=== PATIENT | female | born 1950 | race Two or more races ===

== ENCOUNTER 2018-07-22 12:37 | Outpatient (CLI) | payer OTHER | END 2018-07-22 12:44 | disposition home or self-care (01) | LOC: SONOGRAMA 12:37 | DX: N60.11 Diffuse cystic mastopathy of right breast (principal); N60.12 Diffuse cystic mastopathy of left breast; N63.21 Unspecified lump in the left breast, upper outer quadrant ==

== ENCOUNTER 2018-09-16 06:59 | Day surgery (SDC) | payer OTHER ==
[~2018-09-16 06:59] MED LIST: CALTRATE 600+D1 EAC1 PO; OSTERA TABLET1 EACH PO; SYNTHROID75 MCG PO
== END 2018-09-16 18:15 | disposition home or self-care (01) ==
LOC: CIR.AMB 06:59
DX: D24.2 Benign neoplasm of left breast (principal)

== ENCOUNTER 2018-10-04 10:51 | Emergency (ER) | payer OTHER ==
[~2018-10-04] VITALS: Ht 157.5 cm; Wt 73.0 kg
== END 2018-10-04 14:48 | disposition home or self-care (01) ==
LOC: ER 10:51
DX: I82.4Z2 Acute embolism and thrombosis of unspecified deep veins of left distal lower extremity (principal); M79.652 Pain in left thigh

== ENCOUNTER → 2018-11-02 | Outpatient (CLI) | payer OTHER | END | disposition home or self-care (01) | LOC: NUCLEAR 12:35 | DX: I82.442 Acute embolism and thrombosis of left tibial vein (principal); R07.9 Chest pain, unspecified; R06.09 Other forms of dyspnea; R00.2 Palpitations; I10 Essential (primary) hypertension; E03.8 Other specified hypothyroidism | CPT/HCPCS: 78580; A9540 ==

== ENCOUNTER → 2019-02-13 | Outpatient (CLI) | payer OTHER | END | disposition home or self-care (01) | LOC: NUCLEAR 13:00 | DX: I82.442 Acute embolism and thrombosis of left tibial vein (principal) ==

== ENCOUNTER 2019-11-13 07:39 | Outpatient (CLI) | payer OTHER | END 2019-11-13 08:31 | disposition home or self-care (01) | LOC: NUCLEAR 07:39 | DX: I82.502 Chronic embolism and thrombosis of unspecified deep veins of left lower extremity (principal); I73.9 Peripheral vascular disease, unspecified ==

== ENCOUNTER 2021-07-24 10:05 | Outpatient (CLI) | payer OTHER | END 2021-07-24 10:06 | disposition home or self-care (01) | LOC: NUCLEAR 10:05 | PROVIDERS: ATTEND General Practice | DX: I82.442 Acute embolism and thrombosis of left tibial vein (principal) ==

== ENCOUNTER → 2022-12-08 | Outpatient (CLI) | payer OTHER | END | disposition home or self-care (01) | LOC: NUCLEAR 08:56 | PROVIDERS: ATTEND General Practice | DX: I82.502 Chronic embolism and thrombosis of unspecified deep veins of left lower extremity (principal); I87.2 Venous insufficiency (chronic) (peripheral) ==